=== PATIENT | female | born 2000 | race Caucasian/White ===

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

== ENCOUNTER 2019-11-25 12:41 | Emergency (ER) | payer BC ==
[2019-11-25 12:51] VITALS: BP 99/61
--- NOTE | 2019-11-25 12:59 | UC ---
Throat Pain/Nasal Matteo HPI - HPI Summary HPI Summary: 19yo female presenting with mother for sore throat, sinus congestion, and chills x1.5 days. Patient denies cough. Denies known fevers. Mild decreased appetite. Notes contact with influenza positive person. - History of Current Complaint Chief Complaint: UCGeneralIllness Stated Complaint: SORE THROAT,HEADACHE Hx Obtained From: Patient Hx Last Menstrual Period: 11/19/19 Pain Intensity: 6 Pain Scale Used: 0-10 Numeric - Allergies/Home Medications Allergies/Adverse Reactions: Allergies Allergy/AdvReac Type Severity Reaction Status Date / Time strawberries Allergy Rash Uncoded 11/25/19 12:51 Home Medications: Home Medications Norethindrone AC-Eth Estradiol [Microgestin 21 1.5-30 Tab] 1 tab PO DAILY [History Confirmed 11/25/19] PMH/Surg Hx/FS Hx/Imm Hx Previously Healthy: Yes - Surgical History Surgical History: Yes Surgery Procedure, Year, and Place: shoulder surgery right - Family History Known Family History: Positive: Hypertension, Diabetes - type 2, Other - breast cancer, ovarian cancer - Social History Alcohol Use: Occasionally Substance Use Type: None Smoking Status (MU): Never Smoked Tobacco Review of Systems All Other Systems Reviewed And Are Negative: Yes Constitutional: Positive: Chills, Fatigue. Negative: Fever ENT: Positive: Sore Throat, Sinus Congestion. Negative: Ear Ache Respiratory: Positive: Negative. Negative: Shortness Of Breath, Cough Cardiovascular: Positive: Negative Gastrointestinal: Positive: Negative. Negative: Vomiting, Nausea Musculoskeletal: Negative: Myalgia Neurological: Positive: Headache Physical Exam Triage Information Reviewed: Yes Appearance: Well-Appearing, No Pain Distress, Well-Nourished Vital Signs: Initial Vital Signs Temp 98 F 11/25/19 12:47 Pulse 88 11/25/19 12:47 Resp 16 11/25/19 12:47 BP 99/61 11/25/19 12:47 Pulse Ox 100 11/25/19 12:47 Lab Results 11/25/19 11/25/19 Range/Units 13:03 13:05 Influenza A (Rapid) Positive A (Negative) Group A Strep Rapid Negative (Negative) Vital Signs Reviewed: Yes Eyes: Positive: Conjunctiva Clear ENT: Positive: Hearing grossly normal, Pharyngeal erythema, Nasal congestion, TMs normal, Uvula midline. Negative: Tonsillar swelling, Tonsillar exudate, Trismus, Muffled voice, Hoarse voice, Sinus tenderness Neck exam: Normal Neck: Positive: Supple, Nontender, No Lymphadenopathy Respiratory Exam: Normal Respiratory: Positive: Lungs clear, Normal breath sounds, No respiratory distress Cardiovascular Exam: Normal Cardiovascular: Positive: RRR Neurological: Positive: Alert Psychological: Positive: Normal Response To Family, Age Appropriate Behavior Skin Exam: Normal Throat Pain/Nasal Course/Dx - Course Course Of Treatment: Positive rapid flu A. I treated with tamiflu and instructed to continue with symptomatic treatment. Patient voiced understanding and agreed with treatment plan. - Differential Dx/Diagnosis Provider Diagnosis: Influenza A Discharge ED - Sign-Out/Discharge Documenting (check all that apply): Patient Departure All imaging exams completed and their final reports reviewed: No Studies - Discharge Plan Condition: Stable Disposition: HOME Prescriptions: Oseltamivir CAP* [Tamiflu CAP*] 75 mg PO BID #10 cap Patient Education Materials: Influenza (ED) Referrals: Sarahi Justin NP [Primary Care Provider] - If Needed Additional Instructions: As discussed, you tested positive for influenza today. Take tamiflu as prescribed. You may continue with thera flu for symptom relief. Get plenty of rest and increase your fluid intake. Follow up with your primary care provider if symptoms do not resolve within 5-7 days. Go to the emergency room with any new or worsening symptoms. - Billing Disposition and Condition Condition: STABLE Disposition: Home
[2019-11-25 13:10] LABS: Influenza A Molecular POSITIVE (Negative)
== END 2019-11-25 13:20 | disposition home or self-care (01) ==
LOC: UCEAST 12:41
DX: J11.1 Influenza due to unidentified influenza virus with other respiratory manifestations (principal); Z91.018 Allergy to other foods
CPT/HCPCS: 87651; 99212; G0463